=== PATIENT | female | born 1985 | race African-American/Black ===

== ENCOUNTER 2022-06-24 14:43 | Emergency (ER) | payer OTHER, SELFPAY ==
[2022-06-24 15:39] VITALS: BP 197/120; PULSE 75; RESP 20; TEMP 36.8; O2SAT 99; BMI 36.4
--- NOTE | 2022-06-24 15:40 | ED_ITS ---
HPI - General Adult General Chief complaint: General Medical <SANAM Patel - Last Filed: 06/24/22 15:44> Stated complaint: HBP <SANAM Patel - Last Filed: 06/24/22 15:44> Time Seen by Provider: 06/24/22 17:50 <SANAM Patel - Last Filed: 06/24/22 15:44> Source: patient, RN notes reviewed and old records reviewed <Russel Riggins - Last Filed: 06/24/22 18:24> Mode of arrival: ambulatory <Russel Riggins - Last Filed: 06/24/22 18:24> Limitations: no limitations <Russel Riggins - Last Filed: 06/24/22 18:24> History of Present Illness HPI narrative: 36-year-old female presents for evaluation of high blood pressure. Patient reports that she had previously been on antihypertensive medication use ago but was discontinued as her blood pressure was under control She believes it may have been metoprolol that she was on She went to the dentist today to have a cleaning and was found to be hypertensive and was referred to the ER The patient denies any current chest pain or headache. <Russel Riggins - Last Filed: 06/24/22 18:24> Related Data Home medications: Previous Rx's Medication Instructions Recorded metoprolol succinate 50 mg 50 mg PO DAILY #30 tabs 06/24/22 tablet,extended release 24 hr <SANAM Patel - Last Filed: 06/24/22 15:44> Allergies/adverse reactions: Allergies Allergy/AdvReac Type Severity Reaction Status Date / Time No Known Allergies Allergy Unverified 11/14/19 15:27 <SANAM Patel - Last Filed: 06/24/22 15:44> Review of Systems Constitutional: Constitutional: Reports as per HPI, Denies chills, Denies fatigue, Denies fever(s) and Denies headache(s) <Russel Riggins - Last Filed: 06/24/22 18:24> ENT: Denies headache(s) <Russel Riggins - Last Filed: 06/24/22 18:24> Cardiovascular: Cardiovascular: Denies chest pain and Denies dyspnea <Russel Abebe Last Filed: 06/24/22 18:24> Respiratory: Respiratory: Denies cough and Denies dyspnea <Russel Riggins - Last Filed: 06/24/22 18:24> Gastrointestinal: Gastrointestinal: Denies abdominal pain, Denies constipation and Denies vomiting <Russel Riggins - Last Filed: 06/24/22 18:24> Genitourinary: Genitourinary: Denies dysuria <Russel Riggins - Last Filed: 06/24/22 18:24> Neurologic: Denies headache(s) and Denies focal weakness <Russel Riggins - Last Filed: 06/24/22 18:24> Endocrine: Endocrine: Denies fatigue <Russel Riggins - Last Filed: 06/24/22 18:24> PMFSH Social History Social History: Social History Smoked in Last 30 Days: No Use of substances other than those prescribed or required for medical reasons: No Advance Directives: No Advance Directives Information Provided: No <SANAM Patel - Last Filed: 06/24/22 15:44> Physical Exam ED Vital Signs: Vital Signs - 24 hr 06/24/22 15:39 06/24/22 16:12 06/24/22 17:54 Temperature 98.3 F Pulse Rate 75 73 71 Respiratory Rate 20 Blood Pressure 197/120 H 176/117 H 189/127 H Pulse Oximetry 99 100 Oxygen Delivery Method Room Air Room Air BMI result Body Mass Index 36.4 <SANAM Patel Last Filed: 06/24/22 15:44> Vital Signs - 24 hr 06/24/22 15:39 06/24/22 16:12 06/24/22 17:54 Temperature 98.3 F Pulse Rate 75 73 71 Respiratory Rate 20 Blood Pressure 197/120 H 176/117 H 189/127 H Pulse Oximetry 99 100 Oxygen Delivery Method Room Air Room Air BMI result Body Mass Index 36.4 <Russel Riggins - Last Filed: 06/24/22 18:24> Const General: healthy appearing, comfortable, no acute distress, alert and awake <Russel Riggins - Last Filed: 06/24/22 18:24> Nutritional Appearance: well nourished <Russel Riggins - Last Filed: 06/24/22 18:24> Orientation/consciousness: patient oriented x3 < Last Filed: 06/24/22 18:24> HENMT Head: Yes normocephalic and Yes atraumatic < Last Filed: 06/24/22 18:24> Throat: Yes posterior oropharynx normal < Last Filed: 06/24/22 18:24> Eyes Eyelids: Yes eyelids normal < Last Filed: 06/24/22 18:24> Conjunctivae: conjunctivae normal < Last Filed: 06/24/22 18:24> Sclerae: sclerae normal < Last Filed: 06/24/22 18:24> Corneas: corneas normal < Last Filed: 06/24/22 18:24> Pupils: Equal, round and reactive pupils present < Last Filed: 06/24/22 18:24> EOM: EOMs intact bilaterally < Last Filed: 06/24/22 18:24> Neck Neck: Yes full ROM < Last Filed: 06/24/22 18:24> Resp Effort & Inspection: normal respiratory effort, able to speak in complete sentences, no audible wheezes and not labored < Last Filed: 06/24/22 18:24> Auscultation: clear to auscultation bilaterally < Last Filed: 06/24/22 18:24> Cardio Rate: regular rate < Last Filed: 06/24/22 18:24> Rhythm: regular rhythm < Last Filed: 06/24/22 18:24> Skin General skin exam: no rashes or lesions noted and elasticity normal < Last Filed: 06/24/22 18:24> Neuro General: patient oriented x3 < Last Filed: 06/24/22 18:24> Cranial nerves: Yes Equal, round and reactive pupils present and Yes Bilaterally intact EOM present <Russel Riggins - Last Filed: 06/24/22 18:24> Cognition (Neuro): normal cognition <Russel Riggins - Last Filed: 06/24/22 18:24> Extrem Other: Moving all extremities well without any obvious deformities <Russel Riggins - Last Filed: 06/24/22 18:24> Course Course Course Narrative: RME: 36yo F w/PMHx HTN taken off BP meds years ago c/o HTN (177/132) 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 Denies having PCP at present. Reports CARR yesterday and CP on and off x few days. Denies CARR at present BP 197/120 in triage EKG, labs ordered Full HPI, ROS and PE to be performed by primary ED provider. <SANAM Patel - Last Filed: 06/24/22 15:44> Medications Administered Discontinued Medications Generic Name Dose Route Start Last Admin Trade Name Freq PRN Reason Stop Dose Admin Metoprolol Tartrate 50 mg 06/24/22 18:00 06/24/22 18:08 Metoprolol Tartrate 50 Mg Tablet PO 06/24/22 18:01 50 mg ONCE ONE Administration Protocol <SANAM Patel - Last Filed: 06/24/22 15:44> Medications Administered Discontinued Medications Generic Name Dose Route Start Last Admin Trade Name Freq PRN Reason Stop Dose Admin Metoprolol Tartrate 50 mg 06/24/22 18:00 06/24/22 18:08 Metoprolol Tartrate 50 Mg Tablet PO 06/24/22 18:01 50 mg ONCE ONE Administration Protocol <Russel Riggins - Last Filed: 06/24/22 18:24> Medical Decision Making Medical Decision Making MDM Narrative: 36-year-old female presents for evaluation of high blood pressure that was found incidentally at a dentist cleaning. She denies any current complaints. She had basic labs including troponin and EKG. No acute changes. We will start the patient on metoprolol and she will follow-up with her PCP. I will give her a 30 day supply <Russel Riggins - Last Filed: 06/24/22 18:24> Differential Diagnosis High blood pressure Hypertension Acute headache Intracranial hemorrhage Medication noncompliance Essential hypertension <Russel Riggins - Last Filed: 06/24/22 18:24> Lab Data MDM Lab Attestation statement: I reviewed the patient's lab results. <Russel Riggins - Last Filed: 06/24/22 18:24> Result Diagrams: 06/24/22 16:07 06/24/22 16:07 <SANAM Patel - Last Filed: 06/24/22 15:44> Labs: Lab Results 06/24/22 06/24/22 06/24/22 Range/Units 16:07 16:07 16:07 WBC 6.0 (4.8-10.8) X10*3/uL RBC 3.96 L (4.20-5.50) X10*6/uL Hgb 11.3 L (12.0-16.0) g/dl Hct 34.5 L (37.0-47.0) % MCV 87.1 (80.0-98.0) fL MCH 28.5 (27.0-33.0) pg MCHC 32.8 (31.0-35.0) g/dl RDW 11.9 (11.0-16.0) % Plt Count 249 (160-400) X10*3/uL MPV 10.3 (9.4-12.3) fL Immature Gran % (Auto) 0.2 (0.0-0.4) % Neut % (Auto) 56.4 (45-73) % Lymph % (Auto) 31.2 (20-40) % [place] % (Auto) 9.2 (2-11) % Eos % (Auto) 2.3 (0-4) % Baso % (Auto) 0.7 (0-2) % Lymph # (Auto) 1.9 (1.2-4.9) X10*3/uL [place] # (Auto) 0.6 (0.1-1.2) X10*3/uL Eos # (Auto) 0.1 (0.0-0.4) X10*3/uL Baso # (Auto) 0.0 (0.0-0.2) X10*3/uL Abs Immat Gran (auto) 0.01 (0.00-0.03) X10*3/uL Absolute Neuts (auto) 3.4 (2.0-8.3) x10*3/uL Absolute Nucleated RBC 0.000 (0.0-0.012) X10*3/uL Nucleated RBC % (auto) 0.0 (0.0-0.2) /100WBC Sodium 140 (135-145) mmol/L Potassium 4.1 (3.3-5.1) mmol/L Chloride 108 (96-108) mmol/L Carbon Dioxide 25 (22-29) mmol/L Anion Gap 11 L (12-20) BUN 10 (9-16) mg/dL Creatinine 0.83 (0.5-1.4) mg/dL Estim Creat Clear Calc 100.7 Estimated GFR > 60 Random Glucose 97 (60-115) mg/dL Calcium 9.4 (8.4-10.2) mg/dL Magnesium 2.1 (1.6-2.6) mg/dL Total Bilirubin 0.9 (0.0-1.0) mg/dL Direct Bilirubin 0.2 (0.0-0.5) mg/dL AST 9 (5-31) U/L ALT 8 (0-31) U/L Alkaline Phosphatase 54 (39-117) U/L Troponin I High Sens < 2.7 (<3.5-17.0) ng/L Total Protein 7.4 (6.5-8.0) g/dL Albumin 4.2 (3.5-5.0) g/dL <SANAM Patel - Last Filed: 06/24/22 15:44> Lab Results 06/24/22 06/24/22 06/24/22 Range/Units 16:07 16:07 16:07 WBC 6.0 (4.8-10.8) X10*3/uL RBC 3.96 L (4.20-5.50) X10*6/uL Hgb 11.3 L (12.0-16.0) g/dl Hct 34.5 L (37.0-47.0) % MCV 87.1 (80.0-98.0) fL MCH 28.5 (27.0-33.0) pg MCHC 32.8 (31.0-35.0) g/dl RDW 11.9 (11.0-16.0) % Plt Count 249 (160-400) X10*3/uL MPV 10.3 (9.4-12.3) fL Immature Gran % (Auto) 0.2 (0.0-0.4) % Neut % (Auto) 56.4 (45-73) % Lymph % (Auto) 31.2 (20-40) % [place] % (Auto) 9.2 (2-11) % Eos % (Auto) 2.3 (0-4) % Baso % (Auto) 0.7 (0-2) % Lymph # (Auto) 1.9 (1.2-4.9) X10*3/uL [place] # (Auto) 0.6 (0.1-1.2) X10*3/uL Eos # (Auto) 0.1 (0.0-0.4) X10*3/uL Baso # (Auto) 0.0 (0.0-0.2) X10*3/uL Abs Immat Gran (auto) 0.01 (0.00-0.03) X10*3/uL Absolute Neuts (auto) 3.4 (2.0-8.3) x10*3/uL Absolute Nucleated RBC 0.000 (0.0-0.012) X10*3/uL Nucleated RBC % (auto) 0.0 (0.0-0.2) /100WBC Sodium 140 (135-145) mmol/L Potassium 4.1 (3.3-5.1) mmol/L Chloride 108 (96-108) mmol/L Carbon Dioxide 25 (22-29) mmol/L Anion Gap 11 L (12-20) BUN 10 (9-16) mg/dL Creatinine 0.83 (0.5-1.4) mg/dL Estim Creat Clear Calc 100.7 Estimated GFR > 60 Random Glucose 97 (60-115) mg/dL Calcium 9.4 (8.4-10.2) mg/dL Magnesium 2.1 (1.6-2.6) mg/dL Total Bilirubin 0.9 (0.0-1.0) mg/dL Direct Bilirubin 0.2 (0.0-0.5) mg/dL AST 9 (5-31) U/L ALT 8 (0-31) U/L Alkaline Phosphatase 54 (39-117) U/L Troponin I High Sens < 2.7 (<3.5-17.0) ng/L Total Protein 7.4 (6.5-8.0) g/dL Albumin 4.2 (3.5-5.0) g/dL <Russel Riggins - Last Filed: 06/24/22 18:24> Independent Interpretation I performed an independent interpretation of an: EKG (Sinus rhythm with sinus arrhythmia. Rate of 68 beats per minute) <Russel Riggins - Last Filed: 06/24/22 18:24> Discharge Plan Discharge Clinical Impression: Hypertension <SANAM Patel - Last Filed: 06/24/22 15:44> Patient Disposition: Home, Self-Care <SANAM Patel - Last Filed: 06/24/22 15:44> Instructions: Hypertension (ED) <SANAM Patel - Last Filed: 06/24/22 15:44> Additional Instructions: Your blood tests and EKG were reassuring today predicted take metoprolol 50 mg daily and follow up your primary doctor. You should get a blood pressure cuff and check your blood pressure once daily and keep a log of this to bring to your primary doctor <SANAM Patel - Last Filed: 06/24/22 15:44> Prescriptions: New metoprolol succinate 50 mg tablet extended release 24 hr 50 mg PO DAILY Qty: 30 0RF <SANAM Patel - Last Filed: 06/24/22 15:44>
--- NOTE | 2022-06-24 15:42 | ECG_ITS ---
Test Reason : high blood pressure Blood Pressure : / mmHG Vent. Rate : 068 BPM Atrial Rate : 068 BPM P-R Int : 164 ms QRS Dur : 104 ms QT Int : 370 ms P-R-T Axes : 056 041 019 degrees QTc Int : 393 ms Normal sinus rhythm with sinus arrhythmia Moderate voltage criteria for LVH, may be normal variant ( Sokolow-Preston , [place] product ) Borderline ECG No previous ECGs available Referred By: Martine Campos Electronically Signed By:Nolan Langley
[2022-06-24 16:12] VITALS: BP 176/117; PULSE 73
[2022-06-24 16:12] LABS: MANUAL DIFF FLAG NO
[2022-06-24 16:13] LABS: Basophils Percent Auto 0.7 % (0-2); Eosinophils Absolute Auto 0.1 X10*3/uL (0.0-0.4); Eosinophils Percent Auto 2.3 % (0-4); Hematocrit 34.5 % (37.0-47.0); Hemoglobin 11.3 g/dl (12.0-16.0); Imm Gran Abs Auto 0.01 X10*3/uL (0.00-0.03); Imm Gran Pct Auto 0.2 % (0.0-0.4); Lymphocytes Absolute Auto 1.9 X10*3/uL (1.2-4.9); Lymphocytes Percent Auto 31.2 % (20-40); Mean Corpuscular HGB Conc 32.8 g/dl (31.0-35.0); Mean Corpuscular Hemoglobin 28.5 pg (27.0-33.0); Mean Corpuscular Volume 87.1 fL (80.0-98.0); Mean Platelet Volume 10.3 fL (9.4-12.3); Monocytes Absolute Auto 0.6 X10*3/uL (0.1-1.2); Monocytes Percent Auto 9.2 % (2-11); Neutrophils Absolute Auto 3.4 x10*3/uL (2.0-8.3); Neutrophils Percent Auto 56.4 % (45-73); Platelet Count 249 X10*3/uL (160-400); Red Blood Count 3.96 X10*6/uL (4.20-5.50); Red Cell Distribution Width 11.9 % (11.0-16.0)
[2022-06-24 16:50] LABS: Alanine Aminotransferase 8 U/L (0-31); Albumin Level 4.2 g/dL (3.5-5.0); Alkaline Phosphatase 54 U/L (39-117); Anion Gap 11 (12-20); Aspartate Amino Transferase 9 U/L (5-31); Bilirubin Direct 0.2 mg/dL (0.0-0.5); Bilirubin Total 0.9 mg/dL (0.0-1.0); Blood Urea Nitrogen 10 mg/dL (9-16); Calcium 9.4 mg/dL (8.4-10.2); Carbon Dioxide 25 mmol/L (22-29); Chloride 108 mmol/L (96-108); Creatinine Clr Calc Pharmacy 100.7; Estimated Glomerular Filt Rate > 60; Glucose Random 97 mg/dL (60-115); Magnesium 2.1 mg/dL (1.6-2.6); Potassium 4.1 mmol/L (3.3-5.1); Sodium 140 mmol/L (135-145); Total Protein 7.4 g/dL (6.5-8.0)
[2022-06-24 16:51] LABS: Troponin-I High Sensitivity < 2.7 ng/L (<3.5-17.0)
[2022-06-24 17:54] VITALS: BP 189/127; PULSE 71; O2SAT 100
[2022-06-24] MEDS: Metoprolol Tartrate 50 MG TABLET PO (18:08)
[2022-06-24 18:33] VITALS: BP 196/127; PULSE 67; RESP 16; TEMP 36.9; O2SAT 97
== END 2022-06-24 18:39 | disposition home or self-care (01) ==
PROVIDERS: Physician Assistant; Emergency Provider Emergency Medicine; PCP Physician Assistant Medical
DX: I10 Essential (primary) hypertension (principal)
CPT/HCPCS: 36415; 80048; 80076; 83735; 84484; 85025; 93005; 99283; 99284

== ENCOUNTER 2023-05-10 09:46 | Emergency (ER) | payer OTHER, SELFPAY ==
--- NOTE | 2023-05-10 | ECG_ITS ---
Test Reason : HYPERTENSION Blood Pressure : / mmHG Vent. Rate : 061 BPM Atrial Rate : 061 BPM P-R Int : 172 ms QRS Dur : 094 ms QT Int : 392 ms P-R-T Axes : 048 044 033 degrees QTc Int : 394 ms Normal sinus rhythm with sinus arrhythmia Moderate voltage criteria for LVH, may be normal variant ( Sokolow-Preston , [place] product ) Borderline ECG When compared with ECG of 24-JUN-2022 15:58, No significant change was found Referred By: Generic ED Physician Electronically Signed By:TOSHIA VILLEGAS MD
[2023-05-10 09:53] VITALS: BP 186/105; PULSE 65; RESP 18; TEMP 36.8; O2SAT 98; BMI 36.0
[2023-05-10 09:58] VITALS: BP 189/115
[2023-05-10 10:25] LABS: MANUAL DIFF FLAG NO
[2023-05-10 10:28] LABS: Basophils Percent Auto 0.6 % (0-2); Eosinophils Absolute Auto 0.1 X10*3/uL (0.0-0.4); Eosinophils Percent Auto 2.3 % (0-4); Hematocrit 32.8 % (37.0-47.0); Hemoglobin 10.4 g/dl (12.0-16.0); Imm Gran Abs Auto 0.01 X10*3/uL (0.00-0.03); Imm Gran Pct Auto 0.2 % (0.0-0.4); Lymphocytes Absolute Auto 1.4 X10*3/uL (1.2-4.9); Lymphocytes Percent Auto 28.8 % (20-40); Mean Corpuscular HGB Conc 31.7 g/dl (31.0-35.0); Mean Corpuscular Hemoglobin 26.3 pg (27.0-33.0); Mean Corpuscular Volume 82.8 fL (80.0-98.0); Monocytes Absolute Auto 0.4 X10*3/uL (0.1-1.2); Monocytes Percent Auto 7.2 % (2-11); Neutrophils Absolute Auto 2.9 x10*3/uL (2.0-8.3); Neutrophils Percent Auto 60.9 % (45-73); Platelet Count 277 X10*3/uL (160-400); Red Blood Count 3.96 X10*6/uL (4.20-5.50); Red Cell Distribution Width 13.5 % (11.0-16.0); White Blood Count 4.8 X10*3/uL (4.8-10.8)
[2023-05-10 10:51] LABS: Alanine Aminotransferase 10 U/L (0-31); Albumin Level 4.2 g/dL (3.5-5.0); Alkaline Phosphatase 51 U/L (39-117); Anion Gap 9 (12-20); Aspartate Amino Transferase 11 U/L (5-31); Bilirubin Total 0.6 mg/dL (0.0-1.0); Blood Urea Nitrogen 11 mg/dL (9-16); Calcium 9.4 mg/dL (8.4-10.2); Carbon Dioxide 27 mmol/L (22-29); Chloride 106 mmol/L (96-108); Estimated Glomerular Filt Rate > 60; Glucose Random 95 mg/dL (60-115); Potassium 4.2 mmol/L (3.3-5.1); Sodium 138 mmol/L (135-145)
[2023-05-10 10:59] LABS: Troponin-I High Sensitivity < 2.7 ng/L (<3.5-17.0)
[2023-05-10 11:00] LABS: Appearance Urine Clear; Color Urine Yellow; Glucose Urine UA Negative (Negative); Leukocyte Esterase Urine Negative (Negative); Nitrite Urine Negative (Negative); Urine Blood Negative (Negative); Urine Ketones Negative (Negative); Urine Protein Negative (Neg-Trace)
== END 2023-05-10 14:17 | disposition left against medical advice (07) ==
PROVIDERS: Emergency Provider Emergency Medicine; PCP Internal Medicine
DX: I49.8 Other specified cardiac arrhythmias (principal); I10 Essential (primary) hypertension; Z79.899 Other long term (current) drug therapy
CPT/HCPCS: 36415; 80053; 81003; 84484; 85025; 93005; 99283

== ENCOUNTER → 2023-05-10 10:15 | Outpatient (BNV) | payer OTHER, SELFPAY | PROVIDERS: Emergency Provider Emergency Medicine; PCP Internal Medicine; Visit Provider Internal Medicine Cardiovascular Disease | DX: I49.9 Cardiac arrhythmia, unspecified (principal) | CPT/HCPCS: 93010 ==

== ENCOUNTER 2023-09-12 09:18 | Outpatient (AMB) | payer OTHER, SELFPAY ==
[2023-09-12 09:22] VITALS: BP 112/74; PULSE 72; TEMP 36.6; O2SAT 97; BMI 36.6
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
== END 2023-09-12 10:06 | disposition home or self-care (01) ==
PROVIDERS: PCP Internal Medicine; Visit Provider Internal Medicine
DX: M25.511 Pain in right shoulder (principal); V89.2XXA Person injured in unspecified motor-vehicle accident, traffic, initial encounter; M54.9 Dorsalgia, unspecified; M54.50 Low back pain, unspecified
CPT/HCPCS: 99204

== ENCOUNTER 2023-09-12 09:40 | Outpatient (REF) | payer OTHER, SELFPAY ==
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
--- NOTE | ~2023-09-12 | XR_ITS ---
EXAMINATION: XR SHOULDER, RIGHT CLINICAL INFORMATION: Right shoulder injury COMPARISON: None available. TECHNIQUE: AP external rotation, Grashey, scapular Y, and axillary views of the right shoulder. FINDINGS: The bones and soft tissues are normal. No fracture. Glenohumeral and acromioclavicular alignment is anatomic with normal joint space. No abnormal soft tissue calcifications. XR/XR shoulder RT min 2V IMPRESSION: Normal right shoulder.
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
== END 2023-09-12 09:41 | disposition home or self-care (01) ==
LOC: HO.HMGCX 09:40
PROVIDERS: PCP Internal Medicine; Visit Provider Internal Medicine
DX: M25.511 Pain in right shoulder (principal); M54.9 Dorsalgia, unspecified; M54.50 Low back pain, unspecified; V89.2XXA Person injured in unspecified motor-vehicle accident, traffic, initial encounter
CPT/HCPCS: 72070; 72100; 73030

== ENCOUNTER 2024-08-16 10:17 | Emergency (ER) | payer OTHER, SELFPAY ==
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
[2024-08-16 10:24] VITALS: BP 140/80; BP 148/98; PULSE 102; PULSE 109; RESP 18; TEMP 37; O2SAT 97; O2SAT 99; BMI 36.7
[2024-08-16 10:28] VITALS: BP 158/109; PULSE 105; RESP 18; O2SAT 97
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
--- OUTSIDE RECORDS SUMMARY | 2024-08-16 10:59 | XMS_ITS | Clinical Summary ---
Author Organization [address] Address [address] [facility] [place] [address] Phone Care Team Providers Care Skid Worker Name Role Phone Otilia aBnks MD Primary Care Provider [phone] Allergies No known active allergies Medications hydroCHLOROthiaz gregorio 12.5 mg tablet TAKE 1 TABLET BY MOUTH EVERY DAY 90 tablet 05/23/2024 Active metoprolol succinate (TOPROL-XL) 50 mg 24 hr tablet TAKE 1 TABLET BY MOUTH EVERY DAY 90 tablet 05/23/2024 Active losartan (COZAAR) 100 mg tablet TAKE 1 TABLET BY MOUTH EVERY DAY 90 tablet 05/23/2024 Active Active Problems Problem Noted Date Diagnosed Date Epigastric pain 02/05/2024 Heartburn 02/05/2024 Hemangioma of liver 02/05/2024 Abnormal US (ultrasound) of abdomen 04/25/2019 Overview (02/05/2024): 04/24/2019: Echogenic focus in the liver likely representing hemangioma, six- month follow-up is recommended to ensure stability Cholelithiasis 04/25/2019 GERD (gastroesophageal reflux disease) 0 Essential hypertension 12/15/2015 Overview (02/05/2024): Norvasc, caused stomach pains Constipation 07/02/2013 Headache 07/02/2013 Vitamin D deficiency 08/03/2011 Encounters Date Type Department Care Team Description 07/17/2024 Telephone Adult Medicine [address] [id number] [place], [place] [phone] Otilia Banks MD Pre-operative Clearance; Request For Order(s) 07/10/2024 8:00 AM EDT Consult Adult Medicine [facility] [address] [place] [address] Otilia Banks MD Preop examination (Primary Dx) from Last 3 Months Immunizations Name Administration Dates Next Due Influenza Quadravalent, MDCK , 0.5ml, preservative free (Flucelvax) 6mo and older 01/18/2023,01/11/2019 Influenza Quadravalent, MDCK , 0.5ml, with preservative (Flucelvax) 6mo and older 03/01/2017 Influenza trivalent, 0.5mL, preservative free (Fluarix; FluLaval; Fluzone) ages 6mo and older (Afluria) 3 years and older 11/23/2015 [employer] SARS-CoV-2 COVID -19, vector-nr, rS-Ad26, preservative free 06/25/2020 [employer] SARS-CoV-2 COVID-19, mRNA, LNP-S, preservative free 03/05/2021 Tdap Tetanus diptheria acell ular pertussis (Boostrix; Adacel) 7yo and older 10/15/2015,06/22/2011 Surgical History Surgery Date Site/Laterality Comments SECTION 09/2015 PROCEDURE: HISTORICAL DELIVERY BELT ABDOMINOPLASTY 2017 PROCEDURE: HISTORICAL TUMMY TUCK OTHER SURGICAL HISTORY 08/21/2019 PROCEDURE: HISTORICAL COSMETIC SURGERY; COMMENT: liposuction with fat transfer to buttocks/hips OTHER SURGICAL HISTORY 06/2020 PROCEDURE: HISTORICAL COSMETIC SURGERY; COMMENT: lipo and BBL Medical History Medical History Date Comments Anemia DX:Anemia Venereal disease DX:Venereal dis ease Abnormal cytological finding in specimen from cervix DX:Abnormal cytological find ing in specimen from cervix Essential hypertension DX:Essent ial hypertension Epigastric pain DX:Epigastric pa in Heartburn DX:Heartburn Cholelithiasis DX:Cholelithiasi s; COMMENT: Noted on recent ultrasound Hemangioma of liver DX:Hemangiom a of liver Lab test positive for detect ion of COVID-19 virus 12/2019 DX:Lab test positive for det ection of COVID-19 virus Trichomonas contact, treated 02/2020 DX: Trichomonas contact, treated Lab test positive for detect ion of COVID-19 virus 12/29/2019 DX:Lab test positive for det ection of COVID-19 virus; COMMENT: POSITIVE 01/21/2020 Essential (primary) hypertension DX:Essential (primary) hypertension Vaginal trichomoniasis 12/12/2022 DX:Vagina l trichomoniasis; COMMENT: tapestry Obesity DX:Obesity Family History Medical History Relation Name Comments Lung cancer Father Arthritis Maternal Grandmother Hypertension Maternal Grandmother Hypertension Mother Other: bone cancer Mother dx 09/2022 Other: sarcoma Mother Stroke Mother Hypertension Uncle mother's side Breast cancer Neg Hx Colon cancer Neg Hx Ovarian cancer Neg Hx Relation Name Status Comments Brother 1 Alive 1/2 sib Brother 2 Alive 1/2 sib Brother 3 Alive 1/2 sib Brother 4 Alive 1/2 sib Father Alive ? Maternal Grandmother Mother Alive htn Sister 1 Alive Sister 2 Alive Uncle Social History Tobacco Use Types Packs/Day Years Used Date Smoking Tobacco: Never Smokeless Tobacco: Never Tobacco Cessation:Counseling Given: Not Answered Alcohol Use Standard Drinks/Week Comments No 0 (1 standard drink = 0.6 oz pur e alcohol) Comments Unknown Sex and Gender Information Value Date Recorded Sex Assigned at Not on file Legal Sex Female 12:35 AM EST Gender Identity Not on file Sexual Orientation Not on file Obstetrics History Last Filed Vital Signs Vital Sign Reading Time Taken Comments Blood Pressure 116/80 07/10/2024 8:08 AM EDT Pulse 72 07/10/2024 8:08 AM EDT Temperature 36.4 C (97.5 F) 07/10/2024 8:08 AM EDT Respiratory Rate 16 07/10/2024 8:08 AM EDT Oxygen Saturation 98% 07/10/2024 8:08 AM EDT Inhaled Oxygen Concentration - - Weight 93.4 kg (206 lb) 07/10/2024 8:08 AM EDT Height 162.6 cm (5' 4 ) 07/10/2024 8:08 AM EDT Body Mass Index 35.36 07/10/2024 8:08 AM EDT Plan of Treatment Upcoming Encounters Date Type Department Care Team (Late st Contact Info) Description 08/23/2024 7:30 AM EDT Office Visit Adult Medicine [facility] [address] [place] [address] Otilia Banks MD [address] [place] [address] 10/11/2024 1:40 PM EDT Office Visit Obstetrics & Gynecology - [address] [phone] Jesika Ruby, CNM [address] [place] [address] Health Maintenance Due Date Last Done Comments Hepatitis B Vaccines (1 of 3 - 19+ 3-dose series) 10/10/2003 Social Influencers of Health Screening 01/30/2022 COVID-19 Vaccine ( season) 2023 03/05/2021, 06/25/2020 Influenza Vaccine (Season Ended) 2024 01/18/2023, 01/11/2019, 03/01/2017, Additional history exists Depression Screening 07/09/2025 07/09/2024, 05/19/19 24 Hypertension/CHF/CAD Annual BMP Blood Test 07/12/2025 07/12/2024, 02/17/2023 DTaP,Tdap,and Td Vaccines (3 - Td or Tdap) 10/14/2025 10/15/2015, 06/22/2011 Cervical Cancer Screening: HPV 06/25/2026 06/25/2021 Cholesterol Screening (Lipid Panel) 07/12/2029 07/12/2024, 02/17/2023 HIV Screening Completed 06/25/2021 Hepatitis C Screening Completed 06/25/2021 HIB Vaccines Aged Out No longer eligi ble based on patient's age to complete this topic HPV Vaccines Aged Out No longer eligi ble based on patient's age to complete this topic Hepatitis A Vaccines Aged Out No long er eligible based on patient's age to complete this topic IPV Vaccines Aged Out No longer eligi ble based on patient's age to complete this topic MMR Vaccines Aged Out No longer eligi ble based on patient's age to complete this topic Meningococcal ACWY Vaccine Aged Out N o longer eligible based on patient's age to complete this topic Meningococcal B Vaccine Aged Out No l onger eligible based on patient's age to complete this topic Pneumococcal Vaccine: Pediatrics (0 to 5 Years) and At-Risk Patients (6 to 64 Years) Aged Out No longer eligible based on patient's age to complete this topic RSV Immunization Patients Under 20 months Aged Out No longer eligible based on patient's age to complete this topic Varicella Vaccines Aged Out No longer eligible based on patient's age to complete this topic Procedures Procedure Name Priority Date/Time Associated Diagnosis Comments CBC WITH AUTO DIFFERENTIAL Routine 07/24/2024 4:15 PM EDT Preop examination CBC AND DIFFERENTIAL Routine 07/24/2024 4:15 PM EDT Preop examination CBC WITH AUTO DIFFERENTIAL Routine 07/12/2024 8:12 AM EDT Essential hypertension COMPREHENSIVE METABOLIC PANEL Routine 07/12/2024 8:12 AM EDT Essential hypertension CBC AND DIFFERENTIAL Routine 07/12/2024 8:12 AM EDT Essential hypertension LIPID PANEL WITH REFLEX TO DIRECT LDL Routine 07/12/2024 8:12 AM EDT Essential hypertension HCG, SERUM, QUALITATIVE Routine 07/10/2024 4:38 PM EDT Preop examination PROTHROMBIN TIME WITH INR Routine 07/10/2024 4:24 PM EDT Preop examination ACTIVATED PARTIAL THROMBOPLASTIN TIME Routine 07/10/2024 4:24 PM EDT Preop examination HM DEPRESSION SCREENING Routine 05/19/2023 HM HPV Routine 06/25/2021 HM HEPATITIS C SCREENING Routine 06/25/2021 HM HIV SCREENING Routine 06/25/2021 from Last 3 Months or Most Recently Relevant to Health Maintenance Results * (ABNORMAL) CBC auto differential (07/24/2024 4:15 PM EDT) Only the most recent of2 resultswithin the time period is included. [facility] WBC 6.0 4.8 - 10.8 K/mcL LAB HEMETOLOGY METHOD 07/24/2024 6:57 PM EDT [facility] RBC 3.60(L) 3.80 - 4.80 M/mcL LAB HEMETOLOGY METHOD 07/24/2024 6:57 PM EDT [facility] Hemoglobin 10.2(L) 11.5 - 16.0 g/dL LAB HEMETOLOGY METHOD 07/24/2024 6:57 PM EDT [facility] Hematocrit 32.0(L) 35.0 - 47.0 % LAB HEMETOLOGY METHOD 07/24/2024 6:57 PM EDT [facility] MCV 88.2 79.0 - 98.0 FL LAB HEMETOLOGY METHOD 07/24/2024 6:57 PM EDT [facility] MCH 28.1 27.0 - 32.0 pcg LAB [facility]EM[facility]OLOGY [facility] MCHC 31.9(L) 32.0 - 37.0 g/dL LAB HEMETOLOGY METHOD 07/24/2024 6:57 PM EDT [facility] RDW 12.8 11.0 - 15.0 % LAB HEMETOLOGY METHOD 07/24/2024 6:57 PM EDT [facility] Platelets 269 130 - 400 K/mcL LAB [facility]EMETOLOGY [facility] MPV 11.3(H) 7.0 - 11.0 FL LAB HEMETOLOGY METHOD 07/24/2024 6:57 PM EDT [facility] NRBC 0.0 <1.0 % LAB HEMETOLOGY METHOD 07/24/2024 6:57 PM EDT [facility] NRBC Absolute 0.00 <0.10 K/mcL LAB HEMETOLOGY METHOD 07/24/2024 6:57 PM [facility] Neutrophils Relative 55.5 % LAB HEMETOLOGY METHOD 07/24/2024 6:57 PM [facility] Lymphocytes Relative 32.5 % LAB HEMETOLOGY METHOD 07/24/2024 6:57 PM EDT [facility] Monocytes Relative 8.2 % LAB HEMETOLOGY METHOD 07/24/2024 6:57 PM [facility] Eosinophils Relative 2.7 % LAB HEMETOLOGY METHOD 07/24/2024 6:57 PM [facility] Basophils Relative 0.8 % LAB HEMETOLOGY METHOD 07/24/2024 6:57 PM [facility] Immature Granulocytes Relative 0.3 % LAB HEMETOLOGY METHOD 07/24/2024 6:57 PM [facility] Neutrophils Absolute 3.33 1.50 - 7.00 K/mcL LAB HEMETOLOGY METHOD 07/24/2024 6:57 PM [facility] Lymphocytes Absolute 1.95 1.00 - 5.00 K/mcL LAB HEMETOLOGY METHOD 07/24/2024 6:57 PM EDT [facility] Monocytes Absolute 0.49 0.20 - 1.00 K/mcL LAB HEMETOLOGY METHOD [facility] Eosinophils Absolute 0.16 0.00 - 0.50 K/mcL LAB HEMETOLOGY METHOD 07/24[facility]20[facility] Basophils Absolute 0.05 0.00 - 0.20 K/mcL LAB HEMETOLOGY METHOD 07/24/2024 6:57 PM EDT [facility] Immature Granulocytes Absolute 0.02 0.00 - 0.03 K/mcL LAB HEMETOLOGY METHOD 07/24/2024 6:57 PM [facility] Blood Venous blood specimen / Unknown Venipuncture / Unknown 07/24/2024 4:15 PM EDT 07/24/2024 4:15 PM EDT us Otilia Banks MD LAB BLOOD ORDERABLES Final Resul t [facility] [address] [place] [address], [place] [phone] * (ABNORMAL) Lipid panel with reflex to direct LDL (07/12/2024 8:12 AM EDT) Cholesterol 186 0 - 200 mg/dL LAB CHEMISTRY METHOD 07/12/2024 11:07 AM [facility] Triglycerides 96 0 - 150 mg/dL LAB CHEMISTRY METHOD 07/12/2024 11:07 AM [facility] HDL 64 >=40 mg/dL LAB CHEMISTRY METHOD 07/12/2024 11:07 AM [facility] LDL Calculated 103(H) 0 - 100 mg/dL LAB CHEMISTRY METHOD 07/12/2024 11:07 AM [facility] VLDL Cholesterol Fausto 19.2 mg/dL LAB CHEMISTRY METHOD 07/12/2024 11:07 AM [facility] Non HDL Chol. (LDL+VLDL) 122 <145 mg/dL LAB CHEMISTRY METHOD 07/12/2024 11:07 AM [facility] Chol/HDL Ratio 2.9 0.0 - 4.4 LAB CHEMISTRY METHOD 07/12/2024 11:07 AM [facility] Blood Venous blood specimen / Unknown Venipuncture / Unknown 07/12/2024 8:12 AM EDT 07/12/2024 8:12 AM EDT us Otilia Banks MD LAB BLOOD ORDERABLES Final Resul t [facility] [address] [place] [address], [place] [phone] * (ABNORMAL) Comprehensive metabolic panel (07/12/2024 8:12 AM EDT) Sodium 138 133 - 145 mmol/L LAB CHEMISTRY METHOD 07/12/2024 11:07 AM [facility] Potassium 4.1 3.5 - 5.5 mmol/L LAB CHEMISTRY METHOD 07/12/2024 11:07 AM [facility] Chloride 105 96 - 110 mmol/L LAB CHEMISTRY METHOD 07/12/2024 11:07 AM [facility] CO2 26 21 - 32 mmol/L LAB CHEMISTRY METHOD 07/12/2024 11:07 AM [facility] Anion Gap 7 3 - 11 LAB CHEMISTRY METHOD 07/12/2024 11:07 AM [facility] Glucose 108(H) 70 - 100 mg/dL LAB CHEMISTRY METHOD 07/12/2024 11:07 AM [facility] BUN 12 5 - 25 mg/dL LAB CHEMISTRY METHOD 07/12/2024 11:07 AM [facility] Creatinine 0.91 0.50 - 1.10 mg/dL LAB CHEMISTRY METHOD 07/12/2024 11:07 AM [facility] eGFR 82 >=60 mL/min/1. 73m2 LAB CHEMISTRY METHOD 07/12/2024 11:07 AM [facility] Comment:Calculation based on the Chronic Kidney Disease Epidemiology Collaboration (CKD-EPI) equation refit without adjustment for race. BUN/Creatinine Ratio 13.2 LAB CHEMISTRY METHOD 07/12/2024 11:07 AM EDT [facility] Calcium 9.6 8.5 - 10.5 mg/dL LAB CHEMISTRY METHOD 07/12/2024 11:07 AM [facility] AST (SGOT) 11 10 - 42 unit/L LAB CHEMISTRY METHOD 07/12/2024 11:07 AM [facility] ALT (SGPT) 18 10 - 60 unit/L LAB CHEMISTRY METHOD 07/12/2024 11:07 AM [facility] Alkaline Phosphatase 52 42 - 121 unit/L LAB CHEMISTRY METHOD 07/12/2024 11:07 AM [facility] Total Protein 7.8 6.0 - 8.0 g/dL LAB CHEMISTRY METHOD 07/12/2024 11:07 AM [facility] Albumin 3.9 3.2 - 5.0 g/dL LAB CHEMISTRY METHOD 07/12/2024 11:07 AM [facility] Total Bilirubin 0.6 0.0 - 1.4 mg/dL LAB CHEMISTRY METHOD 07/12/2024 11:07 AM [facility] Blood Venous blood specimen / Unknown Venipuncture / Unknown 07/12/2024 8:12 AM EDT 07/12/2024 8:12 AM EDT us Otilia Banks MD LAB BLOOD ORDERABLES Final Resul t [facility] [address] [place] [address], * HCG, serum, qualitative (07/10/2024 4:38 PM EDT) hCG Qual Negative Negative 07/10/2024 8:49 PM EDT [facility] Blood Venous blood specimen / Unknown Venipuncture / Unknown 07/10/2024 4:38 PM EDT 07/10/2024 4:38 PM EDT us Otilia Banks MD LAB BLOOD ORDERABLES Final Resul t Performing Organization Address City/[facility]/ZIP Co de Phone Number [facility] [address] [place] [address], [place] [phone] * Activated partial thromboplastin time (07/10/2024 4:24 PM EDT) [facility] aPTT 31.6 24.1 - 39.3 sec LAB COAGULATION METHOD 07/10/2024 6:41 PM EDT [facility] Blood Venous blood specimen / Unknown Venipuncture / Unknown 07/10/2024 4:24 PM EDT 07/10/2024 4:24 PM EDT us Otilia Banks MD LAB BLOOD ORDERABLES Final Resul t Performing Organization Address [facility]/ZIP Co de Phone Number [facility] [address] [place] [address], [place] [phone] * Prothrombin time with INR (07/10/2024 4:24 PM EDT) [facility] Protime 12.8 10.6 - 13.9 sec LAB COAGULATION METHOD 07/10/2024 6:41 PM EDT [facility] INR 1.0 LAB COAGULATION METHOD 07/10/2024 6:41 PM EDT [facility] Blood Venous blood specimen / Unknown Venipuncture / Unknown 07/10/2024 4:24 PM EDT 07/10/2024 4:24 PM EDT us Otilia Banks MD LAB BLOOD ORDERABLES Final Resul t Performing Organization Address [facility]/ZIP Co de Phone Number [facility] [address] [place] [address], [place] [phone] * Depression Screening (05/19/2023) Health system Depression Screening Abstracted Historical Provider HEALTH MAINTENANCE Final Result * Cervical Cancer Screening: HPV (06/25/2021) Pathologist [facility] Cervical Cancer Screening: HPV Negative, Abstracted Historical Provider HEALTH MAINTENANCE Final Result * HIV Screening (06/25/2021) Pathologist [facility] HIV Screening Abstracted [facility] Provider HEALTH MAINTENANCE Final Result * Hepatitis C Screening (06/25/2021) Pathologist [facility] Hepatitis C Screening Abstracted Historical Provider HEALTH MAINTENANCE Final Result from Last 3 Months or Most Recently Relevant to Health Maintenance Insurance [facility] [employer] Care Teams Skid Worker Relationship Specialty Start Date End Date Otilia Banks MD [address] [place] [address] [phone] PCP - General 06/24/22
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
[2024-08-16] MEDS: Acetaminophen 325 MG TABLET 650 MG PO (11:55)
[2024-08-16] MEDS: Lidocaine 4 % Patch ADH..PATCH 1 PATCH TRANSDERMA (11:56)
[2024-08-16 12:04] VITALS: BP 155/90; PULSE 69; RESP 18; O2SAT 98
[2024-08-16 12:35] VITALS: BP 155/90; PULSE 69; RESP 18; TEMP 36.7; O2SAT 98
== END 2024-08-16 12:36 | disposition home or self-care (01) ==
PROVIDERS: Emergency Provider Emergency Medicine; PCP Internal Medicine
DX: S93.402A Sprain of unspecified ligament of left ankle, initial encounter (principal); M54.50 Low back pain, unspecified; M54.6 Pain in thoracic spine; M79.672 Pain in left foot; V43.52XA Car driver injured in collision with other type car in traffic accident, initial encounter; Y93.9 Activity, unspecified; Y92.410 Unspecified street and highway as the place of occurrence of the external cause; Y99.8 Other external cause status
CPT/HCPCS: 72072; 72100; 73590; 73610; 73630; 99283; 99284

== ENCOUNTER → 2024-08-16 10:50 | Outpatient (BNV) | payer OTHER, SELFPAY | PROVIDERS: Emergency Provider Emergency Medicine; PCP Internal Medicine; Visit Provider Radiology Diagnostic Radiology | DX: M54.6 Pain in thoracic spine (principal); M54.50 Low back pain, unspecified; M25.572 Pain in left ankle and joints of left foot; R22.42 Localized swelling, mass and lump, left lower limb; V89.2XXA Person injured in unspecified motor-vehicle accident, traffic, initial encounter | CPT/HCPCS: 72072; 72100; 73610 ==